=== PATIENT | female | born 1950 | race Caucasian/White ===

== ENCOUNTER 2017-08-08 21:33 | Inpatient (IN) | payer MEDICARE, OTHER ==
[~2017-08-08] VITALS: Ht 152.4 cm; Wt 73.0 kg
[2017-08-08] MEDS ORDERED: SODIUM CHLORIDE 0.9% 1000ML 1,000 ML IV ONE (22:15)
[2017-08-08] MEDS ORDERED: ONDANSETRON HCL INJ 2 MG/ML VIAL IV STA (22:15)
[2017-08-08 22:52] LABS: BASOPHILS # (AUTO) 0.1 (0.0-0.1); BASOPHILS % 0.5 % (0.0-1.0); EOSINOPHILS # (AUTO) 0.3 (0.0-0.4); EOSINOPHILS % 1.9 % (0.0-6.0); HEMATOCRIT 47.8 % (34.2-44.1); HEMOGLOBIN 16.1 g/dL (12.0-16.0); LYMPHOCYTES # (AUTO) 2.4 (1.0-3.2); LYMPHOCYTES % 16.1 % (18.0-39.1); MEAN CORPUSCULAR HEMOGLOBIN 28.7 pg (28-32); MEAN CORPUSCULAR HGB CONC 33.7 g/dL (31-35); MEAN CORPUSCULAR VOLUME 85.2 fL (81-99); MONOCYTES # (AUTO) 0.8 (0.2-0.8); MONOCYTES % 5.6 % (4.4-11.3); NEUTROPHILS # (AUTO) 11.4 (2.1-6.9); NEUTROPHILS % 75.4 % (38.7-80.0); PLATELET COUNT 267 x10e3/uL (140-360); RED BLOOD COUNT 5.61 x10e6/uL (3.6-5.1); RED CELL DISTRIBUTION WIDTH 13.1 % (11.7-14.4)
[2017-08-08 23:12] LABS: ALANINE AMINOTRANSFERASE 32 IU/L (0-55); ALBUMIN 4.1 g/dL (3.5-5.0); ALBUMIN/GLOBULIN RATIO 0.9 (0.8-2.0); ALKALINE PHOSPHATASE 104 IU/L (40-150); AMYLASE 53 U/L (25-125); BLOOD UREA NITROGEN 10 mg/dL (7-26); BUN/CREATININE RATIO 13 (6-25); CALCIUM 10.1 mg/dL (8.4-10.2); CARBON DIOXIDE 28 mmol/L (22-29); CHLORIDE 101 mmol/L (98-107); CREATININE, SERUM 0.77 mg/dL (0.57-1.11); EST GLOMERULAR FILTRATION RATE > 60 ML/MIN (60-); GLUCOSE 128 mg/dL (74-118); LIPASE 11 U/L (8-78); SODIUM 142 mmol/L (136-145)
[2017-08-08] MEDS ORDERED: MORPHINE SULFATE 2 MG/ML SYR IV STA (23:22)
[2017-08-08] MEDS ORDERED: ONDANSETRON HCL INJ 2 MG/ML VIAL ONE (23:32)
[2017-08-09] VITALS (8 sets, daily range): BP systolic 129–183; BP diastolic 59–80
--- NOTE | 2017-08-09 00:17 | Diagnostic Imaging Report ---
EXAM: CT Abdomen and Pelvis WITHOUT contrast INDICATION: Abdominal pain COMPARISON: None. TECHNIQUE: Abdomen and pelvis were scanned utilizing a multidetector helical scanner from the lung base to the pubic symphysis without administration of IV contrast. Absence of intravenous contrast decreases sensitivity for detection of focal lesions and vascular pathology. Coronal and sagittal reformations were obtained. Routine protocol was performed. IV CONTRAST: None. ORAL CONTRAST: Gastrografin RADIATION DOSE: Total DLP: 615.27 mGy*cm Estimated effective dose: (DLP x 0.015 x size factor) mSv COMPLICATIONS: None FINDINGS: LINES and TUBES: None. LOWER THORAX: Unremarkable HEPATOBILIARY: No focal hepatic lesions. No biliary ductal dilation. GALLBLADDER: No radio-opaque stones or sludge. No wall thickening. SPLEEN: No splenomegaly. PANCREAS: No focal masses or ductal dilatation. ADRENALS: No adrenal nodules KIDNEYS/URETERS: No hydronephrosis. No cystic or solid mass lesions. No stones. GI TRACT: Partial versus early total small bowel obstruction at the level of the infraumbilical hernia . The distal ileum is decompressed. Appendix is normal. PELVIC ORGANS/BLADDER: Unremarkable. LYMPH NODES: No lymphadenopathy. VESSELS: Unremarkable. PERITONEUM / RETROPERITONEUM: No free air or fluid. BONES: Unremarkable. SOFT TISSUES: Fat and bowel containing umbilical hernia involving the mid transverse colon without evidence of obstruction. Additionally, there is an infraumbilical fat-containing and small bowel hernia with a closed loop segment of small bowel best seen on series 2, image 60 through 72. IMPRESSION: 1. Partial versus early complete small bowel obstruction secondary to an entrapment of a short segment of bowel in the infraumbilical hernia. Surgical consult is recommended Signed by: Dr. Chiki Aguilar M.D. on 08/09/2017 12:14 AM
[2017-08-09] MEDS ORDERED: BENZOCAINE/TETRACAINE/BUTAMBEN AERO SPRAY 56 GM CAN ONE (00:40)
[2017-08-09] MEDS ORDERED: PROMETHAZINE HCL (IM) 25 MG/ML VIAL ONE (00:45)
[2017-08-09] MEDS ORDERED: CEFOXITIN 1GM/ DEXTROSE 50ML 50 ML IV SCH (00:45)
[2017-08-09] MEDS ORDERED: ONDANSETRON HCL INJ 2 MG/ML VIAL IV PRN (00:45)
[2017-08-09 00:50] LABS: BILIRUBIN,URINE NEGATIVE (NEGATIVE); KETONES,URINE NEGATIVE (NEGATIVE); LEUKOCYTE ESTERASE ,URINE NEGATIVE (NEGATIVE); NITRITE,URINE NEGATIVE (NEGATIVE); PROTEIN,URINE DIPSTICK NEGATIVE (NEGATIVE); URINE UROBILINOGEN 0.2 mg/dL (0.2 - 1)
[2017-08-09 00:51] LABS: CLARITY,URINE CLEAR (CLEAR); COLOR,URINE YELLOW (YELLOW)
[2017-08-09] MEDS: METRONIDAZOLE 500MG/NS 100ML 100 ML IV SCH ×5 (00:58→23:30)
[2017-08-09] MEDS: SODIUM CHLORIDE 0.9% 1000ML 1,000 ML IV SCH ×2 (00:58→08:41)
[2017-08-09] MEDS ORDERED: HYDRALAZINE HCL 20 MG/ML VIAL IV PRN (01:00)
[2017-08-09] MEDS: CEFOXITIN SOD 1 GM VIAL IV SCH ×4 (01:00→22:07)
[2017-08-09] MEDS ORDERED: PROMETHAZINE 12.5MG/ NACL 0.9% 12.5 MG/50 ML BAG IV ONE (01:00)
[2017-08-09 01:01] LABS: BACTERIA,URINE RARE /HPF; EPITHELIAL CELLS,URINE RARE /LPF; WBC,URINE (MAN) 0-5 /HPF (0-5)
[2017-08-09] MEDS ORDERED: COZAAR25 MG PO (08:03)
[2017-08-09 08:25] LABS: BASOPHILS # (AUTO) 0.1 (0.0-0.1); BASOPHILS % 0.3 % (0.0-1.0); EOSINOPHILS % 0.3 % (0.0-6.0); HEMATOCRIT 43.5 % (34.2-44.1); HEMOGLOBIN 14.6 g/dL (12.0-16.0); LYMPHOCYTES # (AUTO) 1.3 (1.0-3.2); MEAN CORPUSCULAR HEMOGLOBIN 28.7 pg (28-32); MEAN CORPUSCULAR HGB CONC 33.6 g/dL (31-35); MEAN CORPUSCULAR VOLUME 85.5 fL (81-99); MONOCYTES # (AUTO) 0.8 (0.2-0.8); MONOCYTES % 5.3 % (4.4-11.3); NEUTROPHILS # (AUTO) 13.7 (2.1-6.9); NEUTROPHILS % 85.5 % (38.7-80.0); PLATELET COUNT 231 x10e3/uL (140-360); RED BLOOD COUNT 5.09 x10e6/uL (3.6-5.1); RED CELL DISTRIBUTION WIDTH 13.2 % (11.7-14.4)
[2017-08-09 08:38] LABS: ALANINE AMINOTRANSFERASE 26 IU/L (0-55); ALBUMIN 3.5 g/dL (3.5-5.0); ALKALINE PHOSPHATASE 81 IU/L (40-150); ANION GAP 11.7 mmol/L (8-16); BLOOD UREA NITROGEN 9 mg/dL (7-26); BUN/CREATININE RATIO 12 (6-25); CALCIUM 8.5 mg/dL (8.4-10.2); CARBON DIOXIDE 26 mmol/L (22-29); CHLORIDE 108 mmol/L (98-107); CREATININE, SERUM 0.76 mg/dL (0.57-1.11); EST GLOMERULAR FILTRATION RATE > 60 ML/MIN (60-); GLUCOSE 141 mg/dL (74-118); POTASSIUM 3.7 mmol/L (3.5-5.1); SODIUM 142 mmol/L (136-145)
--- NOTE | 2017-08-09 08:59 | Diagnostic Imaging Report ---
Exam: Abdominal film Clinical History: Obstruction Comparison: CT August 18, 2017 DISCUSSION: Enteric tube present with distal tip right of midline. Small bowel loops dilated up to 3.9 cm. Cholecystectomy clips. IMPRESSION: Enteric tube is in satisfactory position. Mildly dilated small bowel loops. Signed by: Dr. Vamshi Owusu M.D. on 08/09/2017 8:55 AM
[2017-08-09] MEDS ORDERED: BUPIVACAINE LIPOSOME/PF 266 MG/20 ML IJ ONE (12:14)
[2017-08-09] MEDS ORDERED: BUPIVACAINE 0.25% 30ML SDV INJ ONE (12:14)
[2017-08-09] MEDS ORDERED: FENTANYL CITRATE/PF 100MCG/2 ML INJ ONE ×2 (13:37→17:34)
[2017-08-09] MEDS ORDERED: METOCLOPRAMIDE HCL 10 MG/2ML VIAL ONE (13:56)
[2017-08-09] MEDS: SODIUM CHLORIDE 0.9% 250ML IRRIG IR SCH ×3 (14:23→22:00)
[2017-08-09] MEDS: ONDANSETRON HCL INJ 2 MG/ML VIAL IV PRN (14:24)
--- NOTE | 2017-08-09 15:07 | Operative Report ---
DATE OF PROCEDURE: August 09, 2017 PREOPERATIVE DIAGNOSIS: Strangulated ventral hernia. POSTOPERATIVE DIAGNOSIS: Strangulated ventral hernia. PROCEDURE PERFORMED: Exploratory laparotomy with partial omentectomy and primary repair of ventral hernia. INDICATIONS: The patient is a pleasant 67-year-old female status post laparoscopic cholecystectomy and status post tubal ligation, who presented with several weeks' history of mid-abdominal pain. The pain was worse the night of admission. She came to the emergency room where she was found to have an incarcerated ventral hernia with a closed loop obstruction. In addition to that, there was a 2nd hernia superior to the obstructing hernia that contained pericolonic fat. INTRAOPERATIVE FINDINGS: The patient had a strangulated hernia with a sac that contained partially necrotic omentum. There was no bowel loop at the time of the exploration found within the hernia sac. She had a total of 3 defects, 1 was located at the level of the umbilicus and 2 other smaller ones were located superior to that. An omentectomy was then performed, and exploration of the abdomen through the larger ventral hernia at the level of the umbilicus revealed no evidence of necrotic bowel. DESCRIPTION OF PROCEDURE: With the patient lying on the operative table in the supine position, after administration of general endotracheal anesthesia, she was prepped and draped for laparotomy and repair of ventral hernia and possible bowel resection. An incision was made along the midline curved to the right of the umbilicus, and the dissection was carried down through skin and subcutaneous tissue until the palpable hernia was identified. The hernia sac was dissected free from the surrounding tissues. It was opened. The sac was excised. There was no bowel within the sac, but the omentum was incarcerated and part of it was dusky. The omentum was then excised with electrocautery and tied off with 2-0 Vicryl and reduced. The other 2 hernias were identified and contained fat and omentum also. The omentum was excised as well as the fat on the 2 more superior defects, and then the exploration of the abdomen again revealed no evidence of compromised small bowel or any other type of viscus. At this point, we went ahead and closed the wound primarily. The patient had a fairly lax abdomen, and so we were able to repair the defects all together as a single unit by imbricating the fascia on itself similar to how a plication of the of the rectus is done. For this we used #0 Ethibond suture. Great care was taken to prevent any involvement of the bowel with the stitches. After we closed the wound, the repair appeared to be strong, even though the patient had a lax and somewhat weak abdominal wall. In its entirety, the repair was strong, and there was no evidence of undue tension on the fascial repair. The sponge and instrument counts were pronounced correct. Then the wound was closed in layers using a combination of 2-0 chromic catgut for the soft tissues, and the skin was closed using a combination of 2-0 silk and cara. A local block was given with a mixture of 20 mL of Exparel and plain Marcaine. Two Dm-Zhang drains, 10 mm each, were brought out through stab wounds inferior to the incision to the right and to the left and secured there with 2-0 silk and eventually connected to self-suction. Sterile dressing was applied. The patient tolerated the procedure well and was taken to the recovery room in stable condition. The family was informed of the intraoperative findings, and questions were answered. Job#: [id number]
[2017-08-09] MEDS: D5.45%NS/KCL 20MEQ 1,000 ML IV SCH (15:18)
[2017-08-09] MEDS: PANTOPRAZOLE 40 MG 10ML VIAL IV SCH (15:52)
[2017-08-09] MEDS ORDERED: SEVOFLURANE INHAL SOLN 250 ML PEN BTL ONE (17:17)
[2017-08-09] MEDS ORDERED: PROPOFOL IV EMULSION 10 MG/ML 20 ML VIAL ONE (17:17)
[2017-08-09] MEDS ORDERED: SUCCINYLCHOLINE 200 MG/10 ML SYR ONE (17:17)
[2017-08-09] MEDS ORDERED: ROCURONIUM BROMIDE 10 MG/ML 5ML VIAL ONE (17:17)
[2017-08-09] MEDS ORDERED: LIDOCAINE HCL 2% LOCAL INJ 5 ML SDV VIAL INJ ONE (17:17)
[2017-08-09] MEDS ORDERED: DEXAMETHASONE SOD PHOS INJ 4 MG/ML VIAL ONE (17:17)
[2017-08-09] MEDS ORDERED: ACETAMINOPHEN 1000 MG/100 ML IV ONE (17:17)
[2017-08-09] MEDS ORDERED: ONDANSETRON HCL INJ 2 MG/ML VIAL ONE (17:17)
[2017-08-09] MEDS ORDERED: MIDAZOLAM HCL 2 MG/2 ML VIAL ONE (17:34)
[2017-08-10] VITALS (8 sets, daily range): BP systolic 132–152; BP diastolic 54–72
[2017-08-10] MEDS: SODIUM CHLORIDE 0.9% 250ML IRRIG IR SCH ×6 (01:49→21:30)
[2017-08-10] MEDS: D5.45%NS/KCL 20MEQ 1,000 ML IV SCH ×3 (01:49→20:00)
[2017-08-10] MEDS: MORPHINE SULFATE 2 MG/ML SYR IV PRN ×4 (04:45→18:52)
[2017-08-10] MEDS: CEFOXITIN SOD 1 GM VIAL IV SCH ×3 (05:45→21:30)
[2017-08-10] MEDS: METRONIDAZOLE 500MG/NS 100ML 100 ML IV SCH ×4 (05:53→23:32)
[2017-08-10 08:14] LABS: BASOPHILS # (AUTO) 0.1 (0.0-0.1); BASOPHILS % 0.4 % (0.0-1.0); EOSINOPHILS # (AUTO) 0.1 (0.0-0.4); EOSINOPHILS % 0.4 % (0.0-6.0); HEMATOCRIT 36.4 % (34.2-44.1); HEMOGLOBIN 11.9 g/dL (12.0-16.0); LYMPHOCYTES # (AUTO) 2.8 (1.0-3.2); LYMPHOCYTES % 15.6 % (18.0-39.1); MEAN CORPUSCULAR HEMOGLOBIN 28.8 pg (28-32); MEAN CORPUSCULAR HGB CONC 32.7 g/dL (31-35); MEAN CORPUSCULAR VOLUME 88.1 fL (81-99); MONOCYTES # (AUTO) 1.9 (0.2-0.8); MONOCYTES % 10.5 % (4.4-11.3); NEUTROPHILS # (AUTO) 12.9 (2.1-6.9); NEUTROPHILS % 72.5 % (38.7-80.0); PLATELET COUNT 199 x10e3/uL (140-360); RED BLOOD COUNT 4.13 x10e6/uL (3.6-5.1); RED CELL DISTRIBUTION WIDTH 13.5 % (11.7-14.4)
[2017-08-10 08:35] LABS: ANION GAP 8.8 mmol/L (8-16); BLOOD UREA NITROGEN 11 mg/dL (7-26); BUN/CREATININE RATIO 15 (6-25); CALCIUM 7.7 mg/dL (8.4-10.2); CARBON DIOXIDE 25 mmol/L (22-29); CHLORIDE 109 mmol/L (98-107); CREATININE, SERUM 0.75 mg/dL (0.57-1.11); EST GLOMERULAR FILTRATION RATE > 60 ML/MIN (60-); GLUCOSE 133 mg/dL (74-118); POTASSIUM 3.8 mmol/L (3.5-5.1); SODIUM 139 mmol/L (136-145)
[2017-08-10 11:09] LABS: BAND NEUTROPHILS % (MANUAL) 2 %; EOSINOPHILS % (MANUAL) 1 % (0-7); LYMPHOCYTES % (MANUAL) 17 % (19-48); MONOCYTES % (MANUAL) 12 % (3.4-9.0); NEUTROPHILS % (MANUAL) 68 % (40-74); PLATELET MORPHOLOGY COMMENT NORMAL; RBC MORPHOLOGY COMMENT NORMAL
[2017-08-10 11:10] LABS: PLATELET ESTIMATE ADEQUATE
--- NOTE | 2017-08-10 14:28 | History and Physical ---
Ms. Ríos is a pleasant 67-year-old woman who presented to the emergency room overnight with a complaint of abdominal discomfort with findings of incarcerated hernia. HISTORY OF PRESENT ILLNESS: The patient tells me that she only recently discovered the hernia in the past week or so, although she had been having some abdominal discomfort for some weeks or months. She has actually been treated for presumptive diverticulitis with antibiotics without improvement. PAST MEDICAL HISTORY: Significant for previous laparoscopic cholecystectomy. She has a history of hypertension and psoriasis. HOME MEDICATIONS: Please see the chart. PERSONAL AND SOCIAL HISTORY: She does not smoke or drink. REVIEW OF SYSTEMS: Relatively unremarkable. PHYSICAL EXAMINATION: GENERAL: Exam at this time shows a pleasant, alert woman who is uncomfortable. HEENT: Unremarkable. THORAX: Heart sounds S1, S2 are equal, no murmurs. LUNGS: Clear. ABDOMEN: Protuberant. EXTREMITIES: No cyanosis, clubbing or edema. ASSESSMENT 1. Incarcerated hernia. 2. History of hypertension. PLAN: Patient is being taken to the operating room by Dr. Stallworth. Further management will be based on clinical course. Job#: [id number] cc:MD AMADA EVERETT MD
[2017-08-10] MEDS: PANTOPRAZOLE 40 MG 10ML VIAL IV SCH (14:29)
[2017-08-10] MEDS: ONDANSETRON HCL INJ 2 MG/ML VIAL IV PRN ×2 (16:13→20:18)
[2017-08-11] VITALS (7 sets, daily range): BP systolic 136–168; BP diastolic 61–75
[2017-08-11] MEDS: SODIUM CHLORIDE 0.9% 250ML IRRIG IR SCH ×3 (01:56→09:45)
[2017-08-11] MEDS: D5.45%NS/KCL 20MEQ 1,000 ML IV SCH ×3 (01:57→16:05)
[2017-08-11] MEDS: CEFOXITIN SOD 1 GM VIAL IV SCH ×3 (05:34→23:06)
[2017-08-11] MEDS: METRONIDAZOLE 500MG/NS 100ML 100 ML IV SCH (05:34)
[2017-08-11] MEDS: MORPHINE SULFATE 2 MG/ML SYR IV PRN (06:05)
[2017-08-11] MEDS: ONDANSETRON HCL INJ 2 MG/ML VIAL IV PRN (06:06)
[2017-08-11] MEDS ORDERED: METOCLOPRAMIDE HCL 10 MG/2ML VIAL IV PRN (10:45)
[2017-08-11] MEDS ORDERED: METOCLOPRAMIDE HCL 10 MG/2ML VIAL IV SCH (12:00)
[2017-08-11] MEDS: PANTOPRAZOLE 40 MG 10ML VIAL IV SCH (14:56)
[2017-08-12] VITALS (8 sets, daily range): BP systolic 140–154; BP diastolic 64–68
[2017-08-12] MEDS: ONDANSETRON HCL INJ 2 MG/ML VIAL IV PRN (01:42)
[2017-08-12] MEDS: MORPHINE SULFATE 2 MG/ML SYR IV PRN (01:43)
[2017-08-12] MEDS: D5.45%NS/KCL 20MEQ 1,000 ML IV SCH ×4 (02:00→19:41)
[2017-08-12] MEDS: CEFOXITIN SOD 1 GM VIAL IV SCH ×3 (05:13→22:13)
[2017-08-12] MEDS ORDERED: HYDROCODONE/APAP 7.5MG-325MG 1 EA TAB PO PRN (10:00)
[2017-08-12] MEDS: METOCLOPRAMIDE HCL 10 MG/2ML VIAL IV SCH ×2 (12:12→17:32)
[2017-08-12] MEDS: PANTOPRAZOLE 40 MG 10ML VIAL IV SCH (13:33)
[2017-08-13] VITALS (7 sets, daily range): BP systolic 133–154; BP diastolic 60–68
[2017-08-13] MEDS: METOCLOPRAMIDE HCL 10 MG/2ML VIAL IV SCH ×3 (00:15→18:10)
[2017-08-13] MEDS: D5.45%NS/KCL 20MEQ 1,000 ML IV SCH ×2 (01:19→08:13)
[2017-08-13 07:20] LABS: BASOPHILS # (AUTO) 0.1 (0.0-0.1); BASOPHILS % 0.4 % (0.0-1.0); EOSINOPHILS # (AUTO) 0.4 (0.0-0.4); EOSINOPHILS % 3.4 % (0.0-6.0); HEMATOCRIT 34.7 % (34.2-44.1); HEMOGLOBIN 11.3 g/dL (12.0-16.0); LYMPHOCYTES # (AUTO) 1.9 (1.0-3.2); LYMPHOCYTES % 15.8 % (18.0-39.1); MEAN CORPUSCULAR HEMOGLOBIN 28.3 pg (28-32); MEAN CORPUSCULAR HGB CONC 32.6 g/dL (31-35); MEAN CORPUSCULAR VOLUME 86.8 fL (81-99); MONOCYTES # (AUTO) 0.9 (0.2-0.8); MONOCYTES % 7.9 % (4.4-11.3); NEUTROPHILS # (AUTO) 8.6 (2.1-6.9); NEUTROPHILS % 72.2 % (38.7-80.0); PLATELET COUNT 233 x10e3/uL (140-360)
[2017-08-13 07:47] LABS: ANION GAP 11.7 mmol/L (8-16); BLOOD UREA NITROGEN 8 mg/dL (7-26); BUN/CREATININE RATIO 11 (6-25); CALCIUM 8.3 mg/dL (8.4-10.2); CARBON DIOXIDE 26 mmol/L (22-29); CHLORIDE 105 mmol/L (98-107); CREATININE, SERUM 0.71 mg/dL (0.57-1.11); EST GLOMERULAR FILTRATION RATE > 60 ML/MIN (60-); GLUCOSE 125 mg/dL (74-118); POTASSIUM 3.7 mmol/L (3.5-5.1); SODIUM 139 mmol/L (136-145)
[2017-08-13] MEDS ORDERED: MAGNESIUM HYDROXIDE 30 ML UDC PO ONE (10:30)
[2017-08-13] MEDS ORDERED: BISACODYL 10 MG SUPP PR ONE (10:30)
[2017-08-13] MEDS: PANTOPRAZOLE 40 MG 10ML VIAL IV SCH (14:41)
[2017-08-13] MEDS: CEFOXITIN SOD 1 GM VIAL IV SCH ×2 (14:41→21:15)
[2017-08-14] VITALS: BP 157/67
[2017-08-14] MEDS: METOCLOPRAMIDE HCL 10 MG/2ML VIAL IV SCH ×2 (00:10→05:39)
[2017-08-14 04:00] VITALS: BP 130/60
[2017-08-14] MEDS: CEFOXITIN SOD 1 GM VIAL IV SCH (05:39)
[2017-08-14 07:50] VITALS: BP 130/60
[2017-08-14 07:59] VITALS: BP 133/62
[2017-08-14 12:08] VITALS: BP 133/63
--- NOTE | 2017-08-15 11:32 | Discharge Summary ---
Ms. Ríos is a pleasant 67-year-old woman who presented to the emergency room with complaint of abdominal discomfort and initial evaluation suggesting incarcerated hernia. HOSPITAL COURSE: She was seen by Dr. Stallworth, who took her to the operating room and actually discovered 2 hernias. These were repaired, and the bowel was found to be intact. She did not require any bowel resection. By the next day, the patient was still uncomfortable with the NG tube in place. Blood pressure was normal, and her medications were withheld. She was given analgesics. Patient made slow progress; but by the , she was able to have the NG tube removed. She tried clear liquids. On the , she advanced her diet and did have a bowel movement. She is healing, and she is discharged to home on the to see Dr. Valenzuela on a regular basis for determination of when she will require antihypertensive medications. She will follow up with Dr. Stallworth for further wound management. DISCHARGE DIAGNOSES 1. Incarcerated hernia. 2. Hypertension. 3. Successful repair of incarcerated hernia. FADY JUNIOR MD Job#: [id number] cc:MD AMADA EVERETT MD
== END 2017-08-14 12:48 | disposition home or self-care (01) | DRG 354 ==
LOC: ER 21:33 → ERHOLD 08-09 00:41 → MED/SURG3 08-09 01:48 → MED/SURG 08-09 14:01
PROVIDERS: ADMIT Internal Medicine Cardiovascular Disease; ATTEND Internal Medicine Cardiovascular Disease
PROC: 0WQF0ZZ Repair Abdominal Wall, Open Approach (ICD-10-PCS; principal; 2017-08-09 10:18)
DX: K43.6 Other and unspecified ventral hernia with obstruction, without gangrene (principal); K57.92 Diverticulitis of intestine, part unspecified, without perforation or abscess without bleeding; K56.7 Ileus, unspecified; L40.9 Psoriasis, unspecified; G47.33 Obstructive sleep apnea (adult) (pediatric)
CPT/HCPCS: 36415; 51700; 74020; 74021; 74176; 80048; 80053; 81001; 82150; 83690; 85025; 87086; 88302; 93005; 96367; 99284; J0694; J1100; J2001; J2250; J2270; J2405; J2550; J2765; J7030

== ENCOUNTER 2020-05-01 10:55 | Emergency (ER) | payer MEDICARE ==
[~2020-05-01] VITALS: Ht 152.4 cm; Wt 74.8 kg
[~2020-05-01 10:55] MED LIST: COZAAR25 MG PO
[2020-05-01] MEDS ORDERED: HYDROCODONE/APAP 7.5MG-325MG 1 EA TAB PO PRN (12:15)
[2020-05-01] MEDS ORDERED: ULTRAM50 MG PO (13:33)
== END 2020-05-01 14:55 | disposition home or self-care (01) ==
LOC: ER 12:28
DX: S06.0X0A Concussion without loss of consciousness, initial encounter (principal); W01.0XXA Fall on same level from slipping, tripping and stumbling without subsequent striking against object, initial encounter; Y93.01 Activity, walking, marching and hiking; Y92.89 Other specified places as the place of occurrence of the external cause; I10 Essential (primary) hypertension; L40.9 Psoriasis, unspecified; Z87.19 Personal history of other diseases of the digestive system
CPT/HCPCS: 70450; 70486; 72125; 99283

== ENCOUNTER 2021-08-20 19:22 | Inpatient (IN) | payer MEDICARE ==
[~2021-08-20] VITALS: Ht 152.4 cm; Wt 71.9 kg
[~2021-08-20 19:22] MED LIST changes: +ULTRAM50 MG PO
[2021-08-20] MEDS ORDERED: SODIUM CHLORIDE 0.9% 1000ML 1,000 ML IV STA (19:31)
[2021-08-20] MEDS ORDERED: ONDANSETRON HCL INJ 2MG/ML 2ML 2 MG/ML VIAL IV STA (19:31)
[2021-08-20 19:44] LABS: BASOPHILS # (AUTO) 0.1 (0.0-0.1); BASOPHILS % 0.3 % (0.0-1.0); EOSINOPHILS % 0.1 % (0.0-6.0); HEMATOCRIT 45.7 % (34.2-44.1); HEMOGLOBIN 15.1 g/dL (12.0-16.0); LYMPHOCYTES # (AUTO) 1.6 (1.0-3.2); LYMPHOCYTES % 8.9 % (18.0-39.1); MEAN CORPUSCULAR HEMOGLOBIN 28.1 pg (28-32); MEAN CORPUSCULAR VOLUME 85.1 fL (81-99); MONOCYTES # (AUTO) 0.9 (0.2-0.8); MONOCYTES % 4.9 % (4.4-11.3); NEUTROPHILS # (AUTO) 15.1 (2.1-6.9); NEUTROPHILS % 85.3 % (38.7-80.0); PLATELET COUNT 338 x10e3/uL (140-360); RED BLOOD COUNT 5.37 x10e6/uL (3.6-5.1); RED CELL DISTRIBUTION WIDTH 13.3 % (11.7-14.4)
[2021-08-20 20:06] LABS: ALBUMIN 4.1 g/dL (3.5-5.0); ALBUMIN/GLOBULIN RATIO 0.9 (0.8-2.0); CALCIUM 10.1 mg/dL (8.4-10.2); CREATININE, SERUM 1.07 mg/dL (0.57-1.11)
[2021-08-20 21:23] LABS: CLARITY,URINE CLEAR (CLEAR); COLOR,URINE YELLOW (YELLOW); KETONES,URINE TRACE (NEGATIVE); LEUKOCYTE ESTERASE ,URINE NEGATIVE (NEGATIVE); NITRITE,URINE NEGATIVE (NEGATIVE); PROTEIN,URINE DIPSTICK 2+ (NEGATIVE); URINE UROBILINOGEN 0.2 mg/dL (0.2 - 1)
[2021-08-20 21:29] LABS: BACTERIA,URINE FEW /HPF; EPITHELIAL CELLS,URINE FEW /LPF; RBC,URINE 0-5 /HPF (0-5); WBC,URINE (MAN) 0-5 /HPF (0-5)
[2021-08-20] MEDS ORDERED: CEFTRIAXONE 1 GM VIAL IV ONE (22:15)
[2021-08-20] MEDS: PIPERACILLIN/TAZOBACTAM 4.5 GM in SODIUM CHLORIDE 0.9% 100 ML IV SCH (22:22)
[2021-08-20] MEDS: SODIUM CHLORIDE 0.9% 1000ML 1,000 ML IV SCH (23:09)
[2021-08-20] MEDS: Morphine 4mg Syringe 4 MG/ML INJ IV PRN (23:28)
[2021-08-21] VITALS (11 sets, daily range): BP systolic 145–178; BP diastolic 64–78
[2021-08-21] MEDS ORDERED: LOSARTAN POTASS25 MG PO (00:22)
[2021-08-21] MEDS ORDERED: HYDROCORTISONE (00:22)
[2021-08-21] MEDS ORDERED: FLUOCINOLONE AC20 ML (00:22)
[2021-08-21] MEDS ORDERED: ONDANSETRON ODT8 MG PO (00:22)
[2021-08-21] MEDS ORDERED: CALCIPOTRIENE-B60 GM (00:22)
[2021-08-21] MEDS ORDERED: CELEBREX200 MG PO (00:22)
[2021-08-21] MEDS ORDERED: POLYETHYLENE GL17 GM PO (00:22)
[2021-08-21] MEDS ORDERED: OMEPRAZOLE40 MG PO (00:22)
[2021-08-21] MEDS ORDERED: DICYCLOMINE HCL10 MG PO (00:22)
[2021-08-21] MEDS ORDERED: ALREX5 ML OP (00:22)
[2021-08-21] MEDS ORDERED: ALENDRONATE SOD70 MG (00:22)
[2021-08-21 05:36] LABS: BASOPHILS # (AUTO) 0.1 (0.0-0.1); BASOPHILS % 0.4 % (0.0-1.0); EOSINOPHILS % 0.2 % (0.0-6.0); HEMATOCRIT 37.7 % (34.2-44.1); HEMOGLOBIN 12.3 g/dL (12.0-16.0); LYMPHOCYTES % 11.6 % (18.0-39.1); MEAN CORPUSCULAR HEMOGLOBIN 28.1 pg (28-32); MEAN CORPUSCULAR HGB CONC 32.6 g/dL (31-35); MEAN CORPUSCULAR VOLUME 86.1 fL (81-99); MONOCYTES # (AUTO) 1.5 (0.2-0.8); MONOCYTES % 8.7 % (4.4-11.3); NEUTROPHILS # (AUTO) 13.3 (2.1-6.9); NEUTROPHILS % 78.4 % (38.7-80.0); PLATELET COUNT 244 x10e3/uL (140-360); RED BLOOD COUNT 4.38 x10e6/uL (3.6-5.1); RED CELL DISTRIBUTION WIDTH 13.2 % (11.7-14.4)
[2021-08-21 06:04] LABS: ANION GAP 12.5 mmol/L (8-16); CALCIUM 7.5 mg/dL (8.4-10.2); CREATININE, SERUM 0.74 mg/dL (0.57-1.11); POTASSIUM 3.5 mmol/L (3.5-5.1)
[2021-08-21] MEDS: SODIUM CHLORIDE 0.9% 1000ML 1,000 ML IV SCH ×3 (07:27→21:17)
[2021-08-21] MEDS ORDERED: METOPROLOL TARTRATE INJ 1 MG/ML VIAL IV PRN (08:45)
[2021-08-21] MEDS: PIPERACILLIN/TAZOBACTAM 4.5 GM in SODIUM CHLORIDE 0.9% 100 ML IV SCH ×2 (09:07→21:13)
[2021-08-21] MEDS: LABETALOL HCL 5 MG/ML 20ML VIAL IV PRN ×2 (09:30→21:43)
[2021-08-22] VITALS (7 sets, daily range): BP systolic 146–169; BP diastolic 70–78
[2021-08-22] MEDS: LABETALOL HCL 5 MG/ML 20ML VIAL IV PRN ×2 (01:13→04:49)
[2021-08-22] MEDS: SODIUM CHLORIDE 0.9% 1000ML 1,000 ML IV SCH ×3 (05:51→21:20)
[2021-08-22 05:54] LABS: BASOPHILS # (AUTO) 0.1 (0.0-0.1); BASOPHILS % 0.5 % (0.0-1.0); EOSINOPHILS # (AUTO) 0.3 (0.0-0.4); EOSINOPHILS % 2.3 % (0.0-6.0); HEMATOCRIT 40.7 % (34.2-44.1); HEMOGLOBIN 12.7 g/dL (12.0-16.0); LYMPHOCYTES # (AUTO) 2.3 (1.0-3.2); LYMPHOCYTES % 18.8 % (18.0-39.1); MEAN CORPUSCULAR HEMOGLOBIN 27.7 pg (28-32); MEAN CORPUSCULAR HGB CONC 31.2 g/dL (31-35); MEAN CORPUSCULAR VOLUME 88.9 fL (81-99); MONOCYTES # (AUTO) 0.7 (0.2-0.8); MONOCYTES % 5.9 % (4.4-11.3); NEUTROPHILS # (AUTO) 8.6 (2.1-6.9); NEUTROPHILS % 72.1 % (38.7-80.0); PLATELET COUNT 242 x10e3/uL (140-360); RED BLOOD COUNT 4.58 x10e6/uL (3.6-5.1); RED CELL DISTRIBUTION WIDTH 13.3 % (11.7-14.4)
[2021-08-22 07:11] LABS: ALBUMIN 3.3 g/dL (3.5-5.0); ALBUMIN/GLOBULIN RATIO 0.9 (0.8-2.0); ANION GAP 14.6 mmol/L (8-16); CALCIUM 7.7 mg/dL (8.4-10.2); CREATININE, SERUM 0.65 mg/dL (0.57-1.11); POTASSIUM 3.6 mmol/L (3.5-5.1)
[2021-08-22] MEDS ORDERED: VITAMIN C 500500 MG PO (07:39)
[2021-08-22] MEDS: PIPERACILLIN/TAZOBACTAM 4.5 GM in SODIUM CHLORIDE 0.9% 100 ML IV SCH ×2 (09:20→21:20)
[2021-08-22] MEDS ORDERED: DESFLURANE 240 ML BTL INH ONE (13:14)
[2021-08-22] MEDS ORDERED: GLYCOPYRROLATE INJ 0.2 MG/ML VIAL ONE (13:14)
[2021-08-22] MEDS ORDERED: NEOSTIGMINE 1 MG/ML 10ML VIAL ONE (13:14)
[2021-08-22] MEDS ORDERED: ONDANSETRON HCL INJ 2MG/ML 2ML 2 MG/ML VIAL ONE (13:14)
[2021-08-22] MEDS ORDERED: POVIDONE IODINE 0.05% 0.05 % ML PO ONE (13:14)
[2021-08-22] MEDS ORDERED: DEXAMETHASONE SOD PHOS INJ 4 MG/ML SDV ONE (13:14)
[2021-08-22] MEDS ORDERED: ROCURONIUM BROMIDE 10 MG/ML 5ML VIAL IV ONE (13:14)
[2021-08-22] MEDS ORDERED: PROPOFOL IV EMULSION 10 MG/ML 20 ML VIAL ONE (13:14)
[2021-08-22] MEDS ORDERED: FENTANYL CITRATE/PF 100MCG/2 ML INJ ONE ×2 (13:20→16:43)
[2021-08-22] MEDS ORDERED: BUPIVACAINE 0.25% 30ML SDV ONE (14:29)
[2021-08-22] MEDS: SODIUM CHLORIDE 0.9% 250ML IRRIG IR SCH ×2 (17:23→21:20)
[2021-08-22] MEDS: Morphine 4mg Syringe 4 MG/ML INJ IV PRN (18:00)
[2021-08-23] VITALS (7 sets, daily range): BP systolic 145–177; BP diastolic 60–75
[2021-08-23] MEDS: SODIUM CHLORIDE 0.9% 250ML IRRIG IR SCH ×6 (00:49→20:07)
[2021-08-23] MEDS: LABETALOL HCL 5 MG/ML 20ML VIAL IV PRN (02:12)
[2021-08-23 05:52] LABS: BASOPHILS # (AUTO) 0.1 (0.0-0.1); BASOPHILS % 0.3 % (0.0-1.0); HEMATOCRIT 37.5 % (34.2-44.1); HEMOGLOBIN 12.1 g/dL (12.0-16.0); LYMPHOCYTES # (AUTO) 1.4 (1.0-3.2); LYMPHOCYTES % 9.3 % (18.0-39.1); MEAN CORPUSCULAR HEMOGLOBIN 28.3 pg (28-32); MEAN CORPUSCULAR HGB CONC 32.3 g/dL (31-35); MEAN CORPUSCULAR VOLUME 87.8 fL (81-99); MONOCYTES # (AUTO) 0.8 (0.2-0.8); MONOCYTES % 5.1 % (4.4-11.3); NEUTROPHILS # (AUTO) 12.7 (2.1-6.9); NEUTROPHILS % 84.7 % (38.7-80.0); PLATELET COUNT 231 x10e3/uL (140-360); RED BLOOD COUNT 4.27 x10e6/uL (3.6-5.1); RED CELL DISTRIBUTION WIDTH 12.8 % (11.7-14.4)
[2021-08-23] MEDS: SODIUM CHLORIDE 0.9% 1000ML 1,000 ML IV SCH ×3 (05:59→19:33)
[2021-08-23 06:00] LABS: ANION GAP 16.5 mmol/L (8-16); CALCIUM 7.3 mg/dL (8.4-10.2); CREATININE, SERUM 0.66 mg/dL (0.57-1.11); POTASSIUM 3.5 mmol/L (3.5-5.1)
[2021-08-23] MEDS: METOPROLOL TARTRATE 25 MG TAB PO SCH ×3 (10:00→21:42)
[2021-08-23] MEDS: PIPERACILLIN/TAZOBACTAM 4.5 GM in SODIUM CHLORIDE 0.9% 100 ML IV SCH ×2 (10:00→21:26)
[2021-08-23] MEDS: Morphine 4mg Syringe 4 MG/ML INJ IV PRN (10:01)
[2021-08-23] MEDS: ONDANSETRON HCL INJ 2MG/ML 2ML 2 MG/ML VIAL IV PRN ×2 (10:01→21:42)
[2021-08-23] MEDS: BISACODYL 10 MG SUPP PR SCH (21:26)
[2021-08-24] VITALS (7 sets, daily range): BP systolic 135–164; BP diastolic 61–80
[2021-08-24] MEDS: SODIUM CHLORIDE 0.9% 250ML IRRIG IR SCH ×6 (00:15→17:12)
[2021-08-24] MEDS: SODIUM CHLORIDE 0.9% 1000ML 1,000 ML IV SCH ×3 (04:00→22:43)
[2021-08-24] MEDS: METOPROLOL TARTRATE 25 MG TAB PO SCH ×3 (05:57→22:42)
[2021-08-24 08:52] LABS: BASOPHILS # (AUTO) 0.1 (0.0-0.1); BASOPHILS % 0.6 % (0.0-1.0); EOSINOPHILS # (AUTO) 0.2 (0.0-0.4); EOSINOPHILS % 1.5 % (0.0-6.0); HEMATOCRIT 40.5 % (34.2-44.1); HEMOGLOBIN 13.4 g/dL (12.0-16.0); LYMPHOCYTES % 14.3 % (18.0-39.1); MEAN CORPUSCULAR HEMOGLOBIN 28.9 pg (28-32); MEAN CORPUSCULAR HGB CONC 33.1 g/dL (31-35); MEAN CORPUSCULAR VOLUME 87.5 fL (81-99); MONOCYTES # (AUTO) 0.9 (0.2-0.8); MONOCYTES % 6.3 % (4.4-11.3); NEUTROPHILS # (AUTO) 10.9 (2.1-6.9); NEUTROPHILS % 76.7 % (38.7-80.0); PLATELET COUNT 250 x10e3/uL (140-360); RED BLOOD COUNT 4.63 x10e6/uL (3.6-5.1); RED CELL DISTRIBUTION WIDTH 12.9 % (11.7-14.4)
[2021-08-24] MEDS: PIPERACILLIN/TAZOBACTAM 4.5 GM in SODIUM CHLORIDE 0.9% 100 ML IV SCH ×2 (09:00→22:42)
[2021-08-24] MEDS ORDERED: BISACODYL 10 MG SUPP PR ONE (09:10)
[2021-08-24] MEDS: BISACODYL 10 MG SUPP PR SCH (10:00)
[2021-08-24] MEDS ORDERED: ACETAMINOPHEN 325 MG TAB PO PRN (11:15)
[2021-08-24] MEDS ORDERED: HYDROCODONE/APAP 5MG-325MG TAB PO PRN (16:00)
[2021-08-25] MEDS: SODIUM CHLORIDE 0.9% 250ML IRRIG IR SCH ×5 (00:15→11:37)
[2021-08-25 00:30] VITALS: BP 162/67
[2021-08-25 04:00] VITALS: BP 139/63
[2021-08-25 05:41] LABS: BASOPHILS # (AUTO) 0.1 (0.0-0.1); BASOPHILS % 0.6 % (0.0-1.0); EOSINOPHILS # (AUTO) 0.4 (0.0-0.4); EOSINOPHILS % 2.7 % (0.0-6.0); HEMATOCRIT 42.6 % (34.2-44.1); HEMOGLOBIN 14.1 g/dL (12.0-16.0); LYMPHOCYTES # (AUTO) 2.9 (1.0-3.2); MEAN CORPUSCULAR HEMOGLOBIN 28.5 pg (28-32); MEAN CORPUSCULAR HGB CONC 33.1 g/dL (31-35); MEAN CORPUSCULAR VOLUME 86.2 fL (81-99); MONOCYTES % 6.6 % (4.4-11.3); NEUTROPHILS # (AUTO) 10.1 (2.1-6.9); NEUTROPHILS % 69.5 % (38.7-80.0); PLATELET COUNT 322 x10e3/uL (140-360); RED BLOOD COUNT 4.94 x10e6/uL (3.6-5.1); RED CELL DISTRIBUTION WIDTH 12.8 % (11.7-14.4)
[2021-08-25] MEDS: METOPROLOL TARTRATE 25 MG TAB PO SCH ×2 (05:52→15:00)
[2021-08-25 06:02] LABS: ANION GAP 14.3 mmol/L (8-16); CALCIUM 7.4 mg/dL (8.4-10.2); CREATININE, SERUM 0.67 mg/dL (0.57-1.11); POTASSIUM 3.3 mmol/L (3.5-5.1)
[2021-08-25] MEDS ORDERED: POTASSIUM CHLORIDE 20 MEQ TAB CR PO STA (07:52)
[2021-08-25 07:56] VITALS: BP 168/72
[2021-08-25] MEDS ORDERED: ACETAMINOPHEN650 M1 PO (08:31)
[2021-08-25] MEDS ORDERED: METRONIDAZOLE500 MG PO (08:31)
[2021-08-25] MEDS ORDERED: CEPHALEXIN500 MG PO (08:31)
[2021-08-25] MEDS: PIPERACILLIN/TAZOBACTAM 4.5 GM in SODIUM CHLORIDE 0.9% 100 ML IV SCH (09:00)
[2021-08-25 09:14] VITALS: BP 168/72
[2021-08-25 11:49] VITALS: BP 180/82
[2021-08-25] MEDS: LABETALOL HCL 5 MG/ML 20ML VIAL IV PRN (11:57)
[2021-08-25 16:05] VITALS: BP 169/71
== END 2021-08-25 18:03 | disposition home or self-care (01) | DRG 336 ==
LOC: ER 19:38 → ERHOLD 22:10 → MED/SURG 23:48
PROVIDERS: ADMIT Internal Medicine; ATTEND Internal Medicine
PROC: 0DN80ZZ Release Small Intestine, Open Approach (ICD-10-PCS; 2021-08-22)
PROC: 0WUF0JZ Supplement Abdominal Wall with Synthetic Substitute, Open Approach (ICD-10-PCS; principal; 2021-08-22 12:00)
DX: K43.6 Other and unspecified ventral hernia with obstruction, without gangrene (principal); N17.9 Acute kidney failure, unspecified; I10 Essential (primary) hypertension; Z20.822 Contact with and (suspected) exposure to COVID-19; Z86.73 Personal history of transient ischemic attack (TIA), and cerebral infarction without residual deficits; L40.9 Psoriasis, unspecified
CPT/HCPCS: 36415; 74018; 74176; 80048; 80053; 81001; 83605; 83690; 84484; 85025; 87040; 87071; 87205; 88302; 93005; 97139; 99251; 99284; C1781; J1100; J2270; J2405; J2543; J2710; J3010; J7030; J7050; U0002